=== PATIENT | female | born 1950 | race Caucasian/White ===

== ENCOUNTER 2020-08-26 16:07 | Emergency (ER) | payer OTHER ==
[2020-08-26] MEDS ORDERED: PREDNISONE 20 M20 MG PO (19:20)
[2020-08-26] MEDS ORDERED: VALTREX1000 MG PO (19:20)
[2020-08-26] MEDS ORDERED: ARTIFICIALS TEA30 ML OP (19:21)
== END 2020-08-26 20:00 | disposition home or self-care (01) ==
LOC: ER1 16:07
DX: G51.0 Bell's palsy (principal); E78.5 Hyperlipidemia, unspecified; E11.9 Type 2 diabetes mellitus without complications; I10 Essential (primary) hypertension
CPT/HCPCS: 70450; 99285